=== PATIENT | male | born 1995 | race African-American/Black ===

== ENCOUNTER 2021-09-19 13:23 | Inpatient (IN) | payer OTHER ==
[2021-09-19 14:52] VITALS: BMI 23.1
[2021-09-19] MEDS ORDERED: IBUPROFEN 600 MG TABLET (FP) PO PRN (15:20)
[2021-09-19] MEDS ORDERED: LOPERAMIDE HCL 2 MG CAPSULE PO PRN (15:20)
[2021-09-19] MEDS ORDERED: ACETAMINOPHEN 325 MG TABLET (FP) PO PRN ×2 (15:20)
[2021-09-19] MEDS ORDERED: IBUPROFEN 400 MG TABLET (FP) PO PRN (15:20)
[2021-09-19] MEDS ORDERED: BISMUTH SUBSALICYLATE 262 MG/15 ML BTL PO PRN (15:20)
[2021-09-19] MEDS ORDERED: DICYCLOMINE HCL 10 MG CAPSULE PO PRN (15:20)
[2021-09-19] MEDS ORDERED: METHOCARBAMOL 500 MG TABLET PO PRN (15:20)
[2021-09-19] MEDS ORDERED: BENZOCAINE/MENTHOL (CHLORASEPTIC ) LOZENGE MM PRN (15:20)
[2021-09-19] MEDS ORDERED: ONDANSETRON *ODT* 4 MG TABLET SL PRN (15:20)
[2021-09-19] MEDS ORDERED: MAG HYDROX/AL HYDROX/SIMETH 30 ML UNIT-DOSE CUP PO PRN (15:20)
[2021-09-19] MEDS ORDERED: MAGNESIUM HYDROX 2400MG/30ML ORAL SUSPENSION 30 ML CUP PO PRN (15:20)
[2021-09-19] MEDS ORDERED: MAGNESIUM CITRATE 300 ML BOTTLE PO PRN (15:20)
[2021-09-19] MEDS: hydrOXYzine PAMOATE 25 MG CAPSULE (FP) PO SCH ×2 (17:27→22:24)
[2021-09-19] MEDS: NICOTINE 10 MG CARTRIDGE (INHALER) IH PRN (19:09)
[2021-09-19] MEDS ORDERED: MELATONIN 5 MG TABLETS PO SCH (22:00)
[2021-09-19] MEDS ORDERED: THIAMINE HCL 100 MG TABLET (FP) PO SCH (22:00)
[2021-09-20] MEDS: hydrOXYzine PAMOATE 25 MG CAPSULE (FP) PO SCH ×4 (05:47→19:00)
[2021-09-20] MEDS ORDERED: PRENATAL VITAMINS W/ FOLIC ACID TABLET (FP) PO SCH (10:00)
[2021-09-20] MEDS ORDERED: chlordiazePOXIDE HCL 25 MG CAPSULE PO PRN (10:15)
[2021-09-20] MEDS: chlordiazePOXIDE HCL 25 MG CAPSULE PO SCH ×2 (10:50→18:59)
[2021-09-20] MEDS: NICOTINE 10 MG CARTRIDGE (INHALER) IH PRN (10:52)
[2021-09-20 11:50] LABS: HEMATOCRIT 44.1 % (35.4-49); HEMOGLOBIN 14.7 GM/dL (11.7-16.9); MCH 30.7 pg (25.7-33.7); MCHC 33.3 g/dl (32.0-35.9); MEAN CELL VOLUME 92.3 fl (80-96); MEAN PLT VOLUME 8.2 fl (7.5-11.1); PLATELET COUNT 235 10^3/uL (134-434); RBC 4.77 M/mm3 (4.00-5.60); RDW 13.1 % (11.9-15.9); WHITE BLOOD COUNT 5.3 K/mm3 (4.0-10.0)
[2021-09-20 12:42] LABS: ALBUMIN 3.8 g/dl (3.4-5.0); CREATININE 1.3 mg/dL (0.55-1.3)
[2021-09-20 12:43] LABS: BILIRUBIN,TOTAL 0.4 mg/dL (0.2-1); TOT PROT 7.1 g/dl (6.4-8.2)
[2021-09-20 12:45] LABS: BLOOD UREA NITROGEN 13.8 mg/dL (7-18)
[2021-09-20 12:46] LABS: CALCIUM 9.2 mg/dL (8.5-10.1)
[2021-09-20 19:31] VITALS: BP 161/90; PULSE 80; TEMP 98.4
[2021-09-22] MEDS ORDERED: chlordiazePOXIDE HCL 25 MG CAPSULE PO SCH (05:00)
[2021-09-23] MEDS ORDERED: chlordiazePOXIDE HCL 10 MG CAPSULE PO PRN
[2021-09-23] MEDS ORDERED: chlordiazePOXIDE HCL 10 MG CAPSULE PO SCH (05:00)
[2021-09-24] MEDS ORDERED: chlordiazePOXIDE HCL 10 MG CAPSULE PO SCH (05:00)
[2021-09-25] MEDS ORDERED: chlordiazePOXIDE HCL 10 MG CAPSULE PO ONE (05:00)
== END 2021-09-20 18:34 | disposition left against medical advice (07) | DRG 770 ==
LOC: YASAS 13:23 → Y6N 15:30
PROVIDERS: ADMIT Allergy & Immunology; ATTEND Surgery
PROC: HZ2ZZZZ Detoxification Services for Substance Abuse Treatment (ICD-10-PCS; principal; 2021-09-19)
DX: F10.230 Alcohol dependence with withdrawal, uncomplicated (principal); F12.20 Cannabis dependence, uncomplicated; F17.210 Nicotine dependence, cigarettes, uncomplicated; F19.282 Other psychoactive substance dependence with psychoactive substance-induced sleep disorder; Z62.810 Personal history of physical and sexual abuse in childhood; Z91.410 Personal history of adult physical and sexual abuse; Z98.890 Other specified postprocedural states
CPT/HCPCS: 36415; 80053; 85027; 86780; 93005; 93010; C9803-CS; U0003; U0005